=== PATIENT | male | born 1960 | race American Indian/Alaskan Native ===

== ENCOUNTER 2018-10-27 09:46 | Outpatient (CLI) | payer OTHER ==
--- NOTE | 2018-10-27 10:38 | XRay Report ---
LEFT KNEE HISTORY: Pain COMPARISON: None. TECHNIQUE: 4 views of the left knee obtained. FINDINGS: Bones: No fracture or dislocation. Joint spaces: Moderate narrowing of the medial joint. Small medial and lateral osteophytes Soft tissues: No significant abnormality. Additional findings: Patellofemoral osteophytes. IMPRESSION: 1. Moderate osteoarthritis. Signer Name: Dawson Menezes MD Signed: 10/27/2018 10:33 AM Workstation Name: [id number]
== END 2018-10-27 09:47 | disposition home or self-care (01) ==
LOC: XRAY 09:46
PROVIDERS: ATTEND Orthopaedic Surgery
DX: M17.12 Unilateral primary osteoarthritis, left knee (principal)